=== PATIENT | female | born 2005 | race Caucasian/White ===

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

== ENCOUNTER 2023-01-12 10:57 | Outpatient (CLI) | payer OTHER, SELFPAY ==
--- NOTE | ~2023-01-12 | US_ITS ---
EXAMINATION: US soft tissue head and neck DATE: 01/12/2023 11:26 INDICATION: Lump left back of neck at base . TECHNIQUE: Grayscale and Doppler ultrasound images of the were obtained. COMPARISON: None. FINDINGS: The area of clinical concern at the left posterior neck along the hairline was sonographica lly interrogated revealing no abnormality. IMPRESSION: No sonographic abnormality in the area of clinical concern. Reviewed, dictated and finalized at location K.
== END 2023-01-12 10:58 | disposition home or self-care (01) ==
PROVIDERS: PCP Family Medicine; Visit Provider Nurse Practitioner Adult Health
DX: R22.1 Localized swelling, mass and lump, neck (principal)
CPT/HCPCS: 76536

== ENCOUNTER 2023-02-02 17:46 | Emergency (ER) | payer OTHER, SELFPAY ==
[2023-02-02 17:55] VITALS: BP 137/82; PULSE 83; RESP 16; TEMP 36.6; O2SAT 100
--- NOTE | 2023-02-02 18:06 | ED.EAR ---
HPI - Ear Problem General Chief complaint: Ear Stated complaint: Ear Infection Time Seen by Provider: 02/02/23 18:00 Source: patient Mode of arrival: ambulatory Limitations: no limitations History of Present Illness HPI Narrative: Patient is a 17 y/o female that presents with 3 days of right jaw to ear pain when swallowing. Patient states it even hurts at times when she is talking. Patient states she has several cavities that need filled but is unsure if any are in the back of her mouth. States she had a cold about a week ago and those symptoms resolved just prior to this starting. Patient states she has had ear infections in the past and this does not feel like her normal ear infection. states she does notice mild swelling to her jaw. Denies any difficulty swallowing or breathing. Denies any fevers. MD Complaint: ear pain Related Data Home Medications Medication Instructions Recorded Confirmed medroxyprogesterone 150 mg/mL 150 mg IM Q3M 02/02/23 02/02/23 intramuscular syringe Allergies Allergy/AdvReac Type Severity Reaction Status Date / Time No Known Allergies Allergy Verified 02/02/23 17:53 Review of Systems Review of Systems: All systems reviewed & are unremarkable except as noted in HPI and below Constitutional: Constitutional: Denies body ache(s), Denies chills, Denies fever(s), Denies headache(s) and Denies malaise Eyes: Eyes: Denies blurry vision, Denies eye discharge and Denies irritation ENT: Reports otalgia, Reports facial pain, Denies headache(s), Denies nasal congestion, Denies nasal discharge and Denies sore throat Cardiovascular: Cardiovascular: Denies chest pain, Denies edema, Denies palpitations and Denies dyspnea on exertion Respiratory: Respiratory: Denies cough and Denies dyspnea on exertion Gastrointestinal: Gastrointestinal: Denies abdominal pain, Denies diarrhea, Denies nausea and Denies vomiting Musculoskeletal: Musculoskeletal: Denies back pain, Denies arthralgias and Denies muscle weakness Integumentary/Breasts: Skin/Breast: Denies pruritus and Denies rash Neurologic: Denies headache(s) Psychiatric: Psychiatric: Reports no additional psychiatric complaints Endocrine: Endocrine: Denies palpitations PMFSH Past Medical History Medical History IUP (intrauterine ), incidental Morbid obesity Family History Family History Father Heart disease Mother Depression Sibling Depression Grandparent Hypertension Diabetes mellitus Social History Social History Smoking status: Never smoker Second hand tobacco smoke exposure: No Alcohol intake: never Substance use: never Lack of Transportation: No Lack of Food: Sometimes True Current Housing: I Have Housing Concerned About Future Housing: No Difficulty Paying Gas/Electric Bills: No Difficulty Paying for Meds: No Currently Unemployed: No Education: Grade School Difficulty w/ Childcare or Family Care: Decline to Answer Living arrangements: with friend(s) Additional occupation/education comments: Stay At Home Mom Gender identity (if verbalized by the patient): Female Spiritual care concerns: No Agree to blood products: Yes Comments At time of signature, agree with nursing past medical, surgical, social and family history. There is no relevant family history pertinent to the presenting complaint? Exam Const: General: cooperative, healthy appearing, no acute distress and well nourished Nutritional Appearance: well nourished Orientation/consciousness: patient oriented x3 Limitations: no limitations HENMT: Head: normal to inspection, normocephalic and atraumatic Ears: hearing grossly normal bilaterally, TM's normal bilaterally, EAC's normal, no periauricular adenopathy and TM abnormal Face/Nose/Sinus: Normal e
== END 2023-02-02 18:21 | disposition home or self-care (01) ==
PROVIDERS: Emergency Provider Nurse Practitioner Family; PCP Family Medicine
DX: K11.21 Acute sialoadenitis (principal); E66.01 Morbid (severe) obesity due to excess calories
CPT/HCPCS: 99213; G0463

== ENCOUNTER 2023-03-20 13:28 | Outpatient (CLI) | payer OTHER, SELFPAY ==
[2023-03-22 13:06] LABS: Mumps Virus IgG Antibody >300.00 AU/mL
== END 2023-03-20 13:29 | disposition home or self-care (01) ==
LOC: ANHBWCLAB 13:29
PROVIDERS: PCP Family Medicine; Visit Provider Nurse Practitioner Adult Health
DX: Z01.84 Encounter for antibody response examination (principal)
CPT/HCPCS: 36415; 86735; 86765

== ENCOUNTER 2023-05-21 18:50 | Emergency (ER) | payer OTHER, SELFPAY ==
[2023-05-21 19:21] VITALS: BP 147/80; PULSE 103; RESP 16; TEMP 36.5; O2SAT 100
--- NOTE | 2023-05-21 20:13 | ED.URI ---
HPI - URI/Sore Throat General Chief Complaint: Upper Respiratory Infection Stated Complaint: Sore Throat;Ear pain Time Seen by Provider: 05/21/23 20:14 Source: patient Mode of arrival: ambulatory Limitations: no limitations History of Present Illness HPI Narrative: 17 year female who presents to [facility] with complaints of sore throat and also some ear discomfort and sinus congestion and drainage for 2 day duration. Patient reports pain increases on swallowing. Patient reports that she has not had any known fevers chills or sweats or any body aches.Patient reports that she has used some cough drops to soothe her throat. MD elicited complaint: sore throat, rhinorrhea, nasal congestion and other (ear) Onset (ago): day(s) (2) Pain scale (0-10): 2 Description of mucous: clear Able to tolerate fluids by mouth: Yes Exacerbating factors: swallowing Treatments prior to arrival: other (cough drops) Related Data Home Medications Medication Instructions Recorded Confirmed medroxyprogesterone 150 mg/mL 150 mg IM Q3M 02/02/23 03/20/23 intramuscular syringe Allergies Allergy/AdvReac Type Severity Reaction Status Date / Time No Known Allergies Allergy Verified 03/20/23 13:00 Review of Systems Review of Systems: CONSTITUTIONAL: Denies malaise, chills, sweats, or fever. EYES: Denies visual changes, redness, or discharge. ENT: Reports rhinorrhea, congestion,no sinus pain,positive for otalgia and sore throat. CARDIOVASCULAR: Denies chest pain, palpitations, or edema. RESPIRATORY: Reports no cough.? Denies dyspnea. GASTROINTESTINAL: Denies abdominal pain, nausea, vomiting, diarrhea SKIN: Denies rash or itching. MUSCULOSKELETAL: Denies myalgia. NEUROLOGIC: Denies headache. All systems reviewed & are unremarkable except as noted in HPI and below PMFSH Past Medical History Medical History IUP (intrauterine ), incidental Morbid obesity Family History Family History Father Heart disease Mother Depression Sibling Depression Grandparent Hypertension Diabetes mellitus Social History Social History Smoking status: Never smoker Second hand tobacco smoke exposure: No Alcohol intake: never Substance use: never Lack of Transportation: No Lack of Food: Sometimes True Current Housing: I Have Housing Concerned About Future Housing: No Difficulty Paying Gas/Electric Bills: No Difficulty Paying for Meds: No Currently Unemployed: No Education: Grade School Difficulty w/ Childcare or Family Care: Decline to Answer Living arrangements: with friend(s) Additional occupation/education comments: Stay At Home Mom Gender identity (if verbalized by the patient): Female Spiritual care concerns: No Agree to blood products: Yes Comments At time of signature, agree with nursing past medical, surgical, social and family history. There is no relevant family history pertinent to the presenting complaint Exam Narrative: GENERAL: Well-appearing, well-nourished, and in no acute distress. HEAD: Normocephalic EYES: PERRLA, conjunctivae clear ENT: Nares clear, turbinates edematous and erythematous, clear discharge. Mucous membranes moist. TM pearly milan with dull light reflex bilaterally; no tragal tenderness. Oropharynx erythematous without lesions. Tonsils not enlarged and without exudate, no drooling, no hoarseness, no trismus, uvula midline.post nasal drainage NECK: Supple. No lymphadenopathy CHEST: Clear to auscultation, breath sounds equal. No wheezing, rhonchi, rales, or stridor. No respiratory distress, speaks in full sentences.no cough noted SAO2 100% on room air HEART: Regular rate and rhythm. No murmur heard. SKIN: Warm, dry, no rash. NEURO: Alert and oriented x3. PSYCH: Norm
== END 2023-05-21 20:30 | disposition home or self-care (01) ==
LOC: EXPGOSH 18:53
PROVIDERS: Emergency Provider Registered Nurse; PCP Family Medicine
DX: J06.9 Acute upper respiratory infection, unspecified (principal)
CPT/HCPCS: 87081; 87804; 87880; 99213; G0463

== ENCOUNTER 2023-06-07 11:03 | Emergency (ER) | payer OTHER, SELFPAY ==
[2023-06-07 11:17] VITALS: BP 129/95; PULSE 100; RESP 16; TEMP 37.1; O2SAT 99
--- NOTE | 2023-06-07 11:22 | ED.URI ---
HPI - URI/Sore Throat General Chief Complaint: Upper Respiratory Infection Stated Complaint: Ear and Throat pain History of Present Illness HPI Narrative: 17 y/o female presented for c/o bilateral ear pressure and sore throat for about 3 weeks. Was seen at the onset in our clinic, and has been taking rosas and steroid as directed with minimal improvement. Pain is intermittent, worse when laying down. Denies difficulty maintaining secretions, tinnitus, dizziness, ear drainage, n/v/d/f/c. Related Data Home Medications Medication Instructions Recorded Confirmed medroxyprogesterone 150 mg/mL 150 mg IM Q3M 02/02/23 06/07/23 intramuscular syringe Allergies Allergy/AdvReac Type Severity Reaction Status Date / Time No Known Allergies Allergy Verified 06/07/23 11:16 Review of Systems Review of Systems: CONSTITUTIONAL: Denies body aches, fever, chills, or sweats. EYES: Denies visual changes, redness, or discharge. ENT: reports rhinorrhea, congestion, sore throat, otalgia. CARDIOVASCULAR: Denies chest pain, palpitations, or edema. RESPIRATORY: Denies dyspnea. GASTROINTESTINAL: Denies abdominal pain, nausea, vomiting, or diarrhea. SKIN: Denies rash, itching, or wounds. MUSCULOSKELETAL: Denies back pain, joint pain, or myalgia. NEUROLOGIC: Denies headache PMFSH Past Medical History Medical History IUP (intrauterine ), incidental Morbid obesity Family History Family History Father Heart disease Mother Depression Sibling Depression Grandparent Hypertension Diabetes mellitus Social History Social History Smoking status: Never smoker Second hand tobacco smoke exposure: No Alcohol intake: never Substance use: never Lack of Transportation: No Lack of Food: Sometimes True Current Housing: I Have Housing Concerned About Future Housing: No Difficulty Paying Gas/Electric Bills: No Difficulty Paying for Meds: No Currently Unemployed: No Education: Grade School Difficulty w/ Childcare or Family Care: Decline to Answer Living arrangements: with friend(s) Additional occupation/education comments: Stay At Home Mom Gender identity (if verbalized by the patient): Female Spiritual care concerns: No Agree to blood products: Yes Exam Narrative: GENERAL: mildly Ill-appearing, no acute distress. EYES: conjunctivae clear ENT: Mucous membranes moist. TMs pearly milan with normal light reflex and clear effusion bilaterally; no tragal tenderness. Oropharynx mildly erythematous without lesions. No drooling, no hoarseness, no trismus, uvula midline. No tripod positioning, hot potato voice, or soft palate swelling. NECK: Supple. No lymphadenopathy CHEST: Clear to auscultation, breath sounds equal. No respiratory distress, speaks in full sentences. HEART: Regular rate and rhythm. No murmur heard. SKIN: Warm, dry, no rash. NEURO: Alert and oriented x3. Course Course Emergency Course: Patient is aware of diagnosis, understands and agrees to treatment plan. Anticipatory guidance given. Patient agrees to follow-up as directed and is aware of reasons to seek care at the emergency department. Portions of this record may have been created with voice recognition software Level of Care: Express Care Visit Vital Signs Vital signs: Vital Signs Temperature 98.8 F 06/07/23 11:17 Pulse Rate 100 06/07/23 11:17 Respiratory Rate 16 06/07/23 11:17 Blood Pressure 129/95 H 06/07/23 11:17 Pulse Oximetry 99 06/07/23 11:17 Temperature 98.8 F 06/07/23 11:17 Pulse Rate 100 06/07/23 11:17 Respiratory Rate 16 06/07/23 11:17 Blood Pressure 129/95 H 06/07/23 11:17 Pulse Oximetry 99 06/07/23 11:17 MDM - URI/Sore Throat MDM Narrative Medical decision making narrat
== END 2023-06-07 11:35 | disposition home or self-care (01) ==
PROVIDERS: Emergency Provider Nurse Practitioner Family; PCP Family Medicine
DX: H65.03 Acute serous otitis media, bilateral (principal); J06.9 Acute upper respiratory infection, unspecified; Z79.899 Other long term (current) drug therapy
CPT/HCPCS: 99213; G0463

== ENCOUNTER 2023-07-13 10:25 | Emergency (ER) | payer OTHER, SELFPAY ==
--- NOTE | 2023-07-13 10:31 | ED.GENADULT ---
HPI - General Adult General Chief complaint: Ear Stated complaint: L EAR PAIN/CLOGGED Time Seen by Provider: 07/13/23 10:35 Source: patient, RN notes reviewed and old records reviewed Mode of arrival: ambulatory Limitations: no limitations History of Present Illness HPI narrative: 17-year-old female presents to the [facility] with left ear pain since yesterday. States it feels clogged. Has taken ibuprofen which helped with the pain. Denies fevers. Patient denies any other symptoms other than ear pain Onset (ago): day(s) (1) Treatments prior to arrival: NSAID Related Data Allergies Allergy/AdvReac Type Severity Reaction Status Date / Time No Known Allergies Allergy Verified 07/13/23 10:29 Review of Systems Review of Systems: All systems reviewed & are unremarkable except as noted in HPI and below Constitutional: Constitutional: Reports no additional constitutional complaints Eyes: Eyes: Reports no additional eye complaints ENT: Reports as per HPI, Denies ear discharge and Reports otalgia (Left) Cardiovascular: Cardiovascular: Reports no additional cardiovascular complaints, Denies chest pain and Denies dyspnea Respiratory: Respiratory: Reports no additional respiratory complaints, Denies chest congestion, Denies cough and Denies dyspnea Gastrointestinal: Gastrointestinal: Reports no additional gastrointestinal complaints, Denies abdominal pain, Denies nausea and Denies vomiting Musculoskeletal: Musculoskeletal: Reports no additional musculoskeletal complaints Integumentary/Breasts: Skin/Breast: Reports system reviewed and no additional complaints, except as docu Neurologic: Reports system reviewed and no additional complaints, except as documented Psychiatric: Psychiatric: Reports no additional psychiatric complaints Allergic/Immunologic: Allergic/Immunologic: Reports no additional allergic/immunologic complaints PMFSH Past Medical History Medical History IUP (intrauterine ), incidental Morbid obesity Family History Family History Father Heart disease Mother Depression Sibling Depression Grandparent Hypertension Diabetes mellitus Social History Social History Smoking status: Never smoker Second hand tobacco smoke exposure: No Alcohol intake: never Substance use: never Lack of Transportation: No Lack of Food: Sometimes True Current Housing: I Have Housing Concerned About Future Housing: No Difficulty Paying Gas/Electric Bills: No Difficulty Paying for Meds: No Currently Unemployed: No Education: Grade School Difficulty w/ Childcare or Family Care: Decline to Answer Living arrangements: with friend(s) Additional occupation/education comments: Stay At Home Mom Gender identity (if verbalized by the patient): Female Spiritual care concerns: No Agree to blood products: Yes Comments At the time of my signature, I reviewed and agree with the nursing past medical, surgical, social, and family history. There is no relevant family history pertinent to the patient complaint. Exam Const: General: cooperative, healthy appearing, comfortable, no acute distress, well developed, alert and well nourished Nutritional Appearance: well nourished Orientation/consciousness: patient oriented x3 Limitations: no limitations HENMT: Head: normal to inspection Ears: hearing grossly normal bilaterally, external ears normal, TM normal on the right, EAC's normal, mastoids normal, no periauricular adenopathy and TM abnormal erythematous on the left Face/Nose/Sinus: Normal external nose present, Normal nares present, Normal nasal mucous membranes and turbinates present, normal facial exam and face symmetric Face and sinus: normal facial exam and face symmetric Mouth: Yes Normal oral and palatal mucosa presen
[2023-07-13 10:33] VITALS: BP 139/74; PULSE 106; RESP 20; TEMP 36.2; O2SAT 100
== END 2023-07-13 10:48 | disposition home or self-care (01) ==
PROVIDERS: Emergency Provider Nurse Practitioner; PCP Family Medicine
DX: H66.92 Otitis media, unspecified, left ear (principal); E66.01 Morbid (severe) obesity due to excess calories
CPT/HCPCS: 99213; G0463

== ENCOUNTER 2024-01-03 10:42 | Emergency (ER) | payer OTHER, SELFPAY ==
--- NOTE | 2024-01-03 10:45 | ED.LOWEXIN ---
HPI - Extremity Injury (Lower) General Chief Complaint: Extremity Injury, Lower Stated Complaint: Left Foot Pain Time Seen by Provider: 01/03/24 10:45 Source: patient Mode of arrival: ambulatory Limitations: no limitations History of Present Illness HPI Narrative: Krystal is a 18-year-old female patient presenting to the clinic today with complaints of left foot pain. She reports she injured her the foot yesterday when stepping off a curb. States she is having pain over the lateral foot-4th and 5th metatarsals Related Data Home Medications Medication Instructions Recorded Confirmed No Home Medications 01/03/24 01/03/24 Allergies Allergy/AdvReac Type Severity Reaction Status Date / Time No Known Allergies Allergy Verified 01/03/24 10:49 Review of Systems Review of Systems: Pertinent positives per HPI. Patient denies any fever, chills, rash, headache, visual changes, dizziness, cough, runny nose, sore throat, shortness of breath, chest pain, palpitations, nausea, vomiting, diarrhea, constipation, abdominal pain, or any urinary issues. PMFSH Past Medical History Medical History IUP (intrauterine ), incidental Morbid obesity Family History Family History Father Heart disease Mother Depression Sibling Depression Grandparent Hypertension Diabetes mellitus Social History Social History Smoking status: Never smoker Second hand tobacco smoke exposure: No Alcohol intake: never Substance use: never Lack of Transportation: No Lack of Food: Sometimes True Current Housing: I Have Housing Concerned About Future Housing: No Difficulty Paying Gas/Electric Bills: No Difficulty Paying for Meds: No Currently Unemployed: No Education: Grade School Difficulty w/ Childcare or Family Care: Decline to Answer Living arrangements: with friend(s) Additional occupation/education comments: Stay At Home Mom Gender identity (if verbalized by the patient): Female Spiritual care concerns: No Agree to blood products: Yes Comments At the time of my signature, I reviewed and agree with the nursing past medical, surgical, social, and family history. There is no relevant family history pertinent to the patient complaint. Exam Narrative: General: Well-developed, well nourished, in no apparent distress Head: Normocephalic, atraumatic. Cardio: Regular rate and rhythm, s1 and s2 normal, no murmur appreciated. Resp: Clear to auscultation bilaterally, no rhonchi, rales, wheezing or rubs. Musculoskeletal: No deformity, tender to palpation over the proximal and mid 4th and 5th metatarsals, grossly normal range of motion, muscle strength strong and equal, peripheral pulse strong, no edema, no cyanosis, normal gait and station Course Course Emergency Course: Portions of this record may have been created with voice recognition software. Level of Care: Express Care Visit Vital Signs Vital signs: Vital Signs Temperature 36.6 C 01/03/24 10:52 Pulse Rate 89 01/03/24 10:52 Respiratory Rate 16 01/03/24 10:52 Blood Pressure 113/60 01/03/24 10:52 Pulse Oximetry 100 01/03/24 10:52 Temperature 36.6 C 01/03/24 10:52 Pulse Rate 89 01/03/24 10:52 Respiratory Rate 16 01/03/24 10:52 Blood Pressure 113/60 01/03/24 10:52 Pulse Oximetry 100 01/03/24 10:52 Vital signs reviewed MDM - Extremity Injury (Lower) MDM Narrative Medical decision making narrative: At the time of visit patient is resting comfortably on the exam table. Patient appears to be nontoxic. Diagnostics: X-ray of the left foot was negative for any sign of fracture or malalignment. Plan: I suspect patient has a foot sprain. Ras wrap was applied. Work note was given. Supportive measures w
[2024-01-03 10:52] VITALS: BP 113/60; PULSE 89; RESP 16; TEMP 36.6; O2SAT 100
== END 2024-01-03 11:28 | disposition home or self-care (01) ==
PROVIDERS: Emergency Provider Nurse Practitioner Family; PCP Family Medicine
DX: S93.602A Unspecified sprain of left foot, initial encounter (principal); X58.XXXA Exposure to other specified factors, initial encounter; E66.01 Morbid (severe) obesity due to excess calories; Z68.39 Body mass index [BMI] 39.0-39.9, adult
CPT/HCPCS: 73630; 99213; G0463

== ENCOUNTER 2024-02-01 13:13 | Outpatient (CLI) | payer OTHER, SELFPAY ==
--- NOTE | ~2024-02-01 | US_ITS ---
US breast RT limited INDICATION: Palpable right breast abnormality. TECHNIQUE: Dedicated right limited breast ultrasound COMPARISON: No prior studies for comparison. FINDINGS: Not dense: There are scattered areas of fibroglandular density. The right breast is compos ed of normal heterogeneous echotexture without focal solid or cystic mass. IMPRESSION: 1: Normal limited right breast ultrasound. BI-RADS CATEGORY 1 - NEGATIVE Reviewed, dictated and finalized at location B.
== END 2024-02-01 13:14 | disposition home or self-care (01) ==
LOC: ANHIMG 13:14
PROVIDERS: PCP Nurse Practitioner Adult Health; Visit Provider Nurse Practitioner Adult Health
DX: N63.10 Unspecified lump in the right breast, unspecified quadrant (principal)
CPT/HCPCS: 76642

== ENCOUNTER 2024-02-09 18:54 | Emergency (ER) | payer OTHER, SELFPAY ==
[2024-02-09 19:03] VITALS: BP 142/77; PULSE 98; RESP 16; TEMP 37.2; O2SAT 100
--- NOTE | 2024-02-09 19:12 | ED.SKABFB ---
HPI - Skin/Abscess/Foreign Bdy General Chief complaint: Skin/Abscess/Foreign Body Stated complaint: boil on armpit,fever, rash on thighs Time Seen by Provider: 02/09/24 19:12 Source: patient, RN notes reviewed and old records reviewed Mode of arrival: ambulatory Limitations: no limitations History of Present Illness HPI narrative: 18 year old female who presents to [facility] care accompanied by significant other with complaints of small approximately 1cm diameter red minimal raised abscess to her right axilla with induration no fluctuation or drainage noted since yesterday. Patient reports that she has put prid salve on area X2 and covered with band-aide. Patient reports that area is sore especially when she moves her arm downward.Patient also has fine minimally raised rash to medial and posterior thighs which resembles heat rash for the past 3 days, has been taking Benadryl for the rash.Patient reports that they took their son [place] the zoo today and she was miserable there. States low grade temperature noted. MD complaint: rash and abscess/boil Onset (ago): day(s) (day 2 of symptoms to axilla, day 3 of rash) Location: RUE (axilla), LLE and RLE (upper medial and posterior thigh) Quality: sharp (axilla) and pruritic (thighs) Treatments prior to arrival: bandages (band-aide to area and prid salve) and other (Benadryl for rash) Related Data Allergies Allergy/AdvReac Type Severity Reaction Status Date / Time No Known Allergies Allergy Verified 02/09/24 19:02 Review of Systems Review of Systems: CONSTITUTIONAL: Reports low grade fever, no chills, or sweats. CARDIOVASCULAR: Denies chest pain, palpitations, or edema. RESPIRATORY: Denies cough or dyspnea. GASTROINTESTINAL: Denies abdominal pain, nausea, or any vomiting or diarrhea SKIN: Reports redness and swelling with approximately 1cm minimally raised abscess to right axilla no fluctuant tissue is painful to palpation,no purulent drainage, fine red itchy rash to medial and posterior upper legs MUSCULOSKELETAL: Denies myalgia NEUROLOGIC: Denies headache, All systems reviewed & are unremarkable except as noted in HPI and below PMFSH Past Medical History Medical History Anxiety and depression IUP (intrauterine ), incidental Migraine Morbid obesity Family History Family History Father Heart disease Mother Depression Sibling Depression Grandparent Hypertension Diabetes mellitus Social History Social History Smoking status: Never smoker Second hand tobacco smoke exposure: No Alcohol intake: never Substance use: never Lack of Transportation: No Lack of Food: Sometimes True Current Housing: I Have Housing Concerned About Future Housing: No Difficulty Paying Gas/Electric Bills: No Difficulty Paying for Meds: No Currently Unemployed: No Education: Grade School Difficulty w/ Childcare or Family Care: Decline to Answer Living arrangements: with friend(s) Additional occupation/education comments: Stay At Home Mom Gender identity (if verbalized by the patient): Female Spiritual care concerns: No Agree to blood products: Yes Comments At time of signature, agree with nursing past medical, surgical, social and family history. There is no relevant family history pertinent to the presenting complaint Exam Narrative: GENERAL: Well-appearing, well-nourished,obese, and in no acute distress. HEAD: Normocephalic, atraumatic. EYES: PERRLA and EOMI. ENT: Nares clear, no rhinorrhea or epistaxis. Mucous membranes moist. NECK: Supple.no lymphadenopathy CHEST: Clear to auscultation. No respiratory distress.SAO2 100% on room air HEART: Regular rate and rhythm. No murmur heard. Normal peripheral pulses. ABDOMEN: Soft, nontender, nondistended, normal active bowel sounds. E
== END 2024-02-09 19:31 | disposition home or self-care (01) ==
PROVIDERS: Emergency Provider Registered Nurse; PCP Nurse Practitioner Adult Health
DX: L02.411 Cutaneous abscess of right axilla (principal); L74.0 Miliaria rubra; E66.01 Morbid (severe) obesity due to excess calories; Z68.41 Body mass index [BMI] 40.0-44.9, adult
CPT/HCPCS: 99213; G0463

== ENCOUNTER 2024-02-27 13:55 | Outpatient (CLI) | payer OTHER, SELFPAY ==
[2024-02-27 19:32] LABS: Add Urine Microscopic? YES; Appearance Urine Turbid (Clear); Bacteria Urine 4+ /hpf; Bilirubin Urine Negative (Negative); Blood Urine 3+ (Negative); Color Urine Dark Yellow (Yellow); Glucose Urine UA Negative (Negative); Ketones Urine Negative (Negative); Leukocyte Esterase Ur 2+ LEU/UL (Negative); Need Manual Microscopic Reviewed; Nitrate Urine Positive (Negative); Protein Urine 2+ mg/dL (Negative); RBC Urine >100 /hpf (0-2); Specific Grav Ur 1.025 (1.001-1.035); Squamous Epithelial Cell Urine Many /hpf (Few); WBC Urine 51-100 /hpf (0-3)
== END 2024-02-27 13:56 | disposition home or self-care (01) ==
LOC: ANHBWCLAB 13:56
PROVIDERS: PCP Nurse Practitioner Adult Health; Visit Provider Nurse Practitioner Adult Health
DX: R39.9 Unspecified symptoms and signs involving the genitourinary system (principal)
CPT/HCPCS: 81001; 87077; 87086; 87088; 87186

== ENCOUNTER 2024-07-03 15:10 | Outpatient (CLI) | payer OTHER, SELFPAY ==
[2024-07-03 20:30] LABS: Anion Gap 9 mmol/L (4-12); Blood Urea Nitrogen 13 mg/dL (7-17); Calcium 9.3 mg/dL (8.4-10.2); Carbon Dioxide 26 mmol/L (22-30); Chloride 102 mmol/L (98-107); Estimated Glomerular Filt Rate > 60; Glucose 96 mg/dL (65-110); Potassium 4.2 mmol/L (3.4-5.0); Sodium 137 mmol/L (137-145)
[2024-07-03 20:49] LABS: Basophils Percent Auto 0.5 % (0.2-1.2); Eosinophils Absolute Auto 0.1 K/mm3 (0-0.3); Eosinophils Percent Auto 0.8 % (0-4.4); Hematocrit 38.4 % (37.0-47.0); Hemoglobin 12.8 g/dL (12.0-15.0); Immature Granulocyte Absolute 0.04 K/mm3 (0.00-0.031); Immature Granulocyte Percent A 0.6 % (0-0.5); Lymphocytes Absolute Auto 1.99 K/mm3 (0.9-3.2); Lymphocytes Percent Auto 30.5 % (18.3-44.2); Mean Corpuscular HGB Conc 33.3 g/dl (32-36); Mean Corpuscular Hemoglobin 29.2 pg (26-34); Mean Corpuscular Volume 87.5 fl (80-100); Mean Platelet Volume 11.1 fl (7.4-10.4); Monocytes Absolute Auto 0.5 K/mm3 (0.1-0.6); Monocytes Percent Auto 7.4 % (2.6-8.5); Neutrophils Absolute Auto 3.9 K/mm3 (1.3-6.7); Neutrophils Percent Auto 60.2 % (45.5-73.1); Platelet Count Result 266 k/mm3 (150-375); Red Blood Count 4.39 M/mm3 (4.2-5.4); Red Cell Distribution Width 13.3 % (11.5-14.5); White Blood Count 6.5 K/mm3 (4.5-10.0)
== END 2024-07-03 15:11 | disposition home or self-care (01) ==
LOC: ANHBWCLAB 15:11
PROVIDERS: PCP Nurse Practitioner Adult Health; Visit Provider Nurse Practitioner Adult Health
DX: R59.1 Generalized enlarged lymph nodes (principal)
CPT/HCPCS: 36415; 80048; 85025

== ENCOUNTER 2024-12-29 16:51 | Emergency (ER) | payer OTHER, SELFPAY ==
[2024-12-29 16:56] VITALS: BP 130/79; PULSE 90; RESP 16; TEMP 36.7; O2SAT 100
--- NOTE | 2024-12-29 18:00 | ED_ITS ---
HPI - Skin/Abscess/Foreign Bdy General Chief complaint: Skin/Abscess/Foreign Body Stated complaint: Rash Time Seen by Provider: 12/29/24 17:50 Source: patient and RN notes reviewed Mode of arrival: ambulatory Limitations: no limitations History of Present Illness HPI narrative: Patient presents today states she believes she has poison alem to her abdomen, chest, legs x4 days. States her boyfriend contracted poison alem approximately 2 weeks ago and got started on some prednisone last week. Personally she did not have contact with the poison alem or with any or oils on her boyfriend, but states she had exposure to ruptured vesicles on her boyfriend's arms. Patient also recently switched from fragrance free laundry detergent back to regular laundry detergent less than 2 weeks ago. She has been trying Benadryl and calamine lotion without relief. She has significant itching at her anterior bra line. Related Data Home Medications ?Medication ?Instructions ?Recorded ?Confirmed ?Last Taken ?Type medroxyprogesterone 150 mg/mL 150 mg IM [id number] 07/03/24 12/17/24 Unknown History intramuscular suspension (Depo-Provera) Allergies Allergy/AdvReac Type Severity Reaction Status Date / Time amoxicillin (From Augmentin) Allergy Mild Rash Verified 12/29/24 17:36 clavulanic acid (From Allergy Mild Rash Verified 12/29/24 17:36 Augmentin) [facility] Past Medical History Medical History Anxiety and depression Migraine Morbid obesity IUP (intrauterine ), incidental Family History Family History Father Heart disease Mother Depression Sibling Depression Grandparent Hypertension Diabetes mellitus Social History Social History Smoking status: Never smoker Second hand tobacco smoke exposure: No Alcohol intake: never Substance use: never Lack of Transportation: No Lack of Food: Sometimes True Current Housing: I Have Housing Concerned About Future Housing: No Difficulty Paying Gas/Electric Bills: No Difficulty Paying for Meds: No Currently Unemployed: No Education: Grade School Difficulty w/ Childcare or Family Care: Decline to Answer Living arrangements: with friend(s) Additional occupation/education comments: Stay At Home Mom Gender identity (if verbalized by the patient): Female Spiritual care concerns: No Agree to blood products: Yes Comments At time of signature, I have reviewed and agree with nursing past medical, surgical, social and family history unless otherwise noted. Please see nursing chart for further information. There is no relevant family history pertinent to the presenting complaint Exam Narrative: GENERAL: Well-appearing, well-nourished, and in no acute distress. HEAD: Normocephalic, atraumatic. EYES: EOMI. No redness or drainage. Conjunctivae normal. ENT: Mucous membranes pink and moist. NECK: Normal AROM. CHEST: No respiratory distress. EXTREMITIES: Normal range of motion. No edema. SKIN: Warm, dry. Capillary refill normal. Normal skin turgor. Erythematous papular rash spread sparsely over the bilateral posterior legs, and a patch to the mid chest, speckled over the bilateral buttocks and lower abdomen. Has a large area of a hyperpigmentation to the anterior bra line without papules that seems to be healing, but this is the area of most pruritus. No signs of bacterial infection. NEURO: No focal deficits. Alert and oriented x3. Gait steady. PSYCH: Normal affect. No signs of depression or anxiety. Course Course Level of Care: Express Care Visit Vital Signs Vital signs: Vital Signs Temperature 98.1 F 12/29/24 16:56 Pulse Rate 90 12/29/24 16:56 Respiratory Rate 16 12/29/24 16:56 Blood Pressure 130/79 12/29/24 16:56 Pulse Oximetry 100 12/29/24 16:56 Oxygen Delivery Room Air 12/29/24 16:56 Temperature 98.1 F 12/29/24 16:56 Pulse Rate 90 12/29/24 16:56 Respiratory Rate 16 12/29/24 16:56 Blood Pressure 130/79 12/29/24 16:56 Pulse Oximetry 100 12/29/24 16:56 Oxygen Delivery Room Air 12/29/24 16:56 Reviewed MDM - Skin/Abscess/Foreign Bdy MDM Narrative Medical decision making narrative: 19-year-old female patient presents with pruritic rash to the abdomen, chest, legs, buttocks that she believes to be poison alem. HPI and exam is more consistent with contact dermatitis, likely from her recent change in laundry soap. She will be prescribed some oral prednisone due to widespread nature, especially to the lower chest, and some triamcinolone it is to be used in smaller areas of itching. Vital signs stable. Care instructions given and patient agrees with plan. Differential Diagnosis Differential diagnosis: Likely abscess of skin or subcutaneous tissue, viral exanthem, dermatophytosis, urticaria, cellulitis, eczema, insect bites, impetigo and contact dermatitis Critical Care Time Critical Care Time Critical Care Time: No Discharge Plan Discharge Clinical Impression: Contact dermatitis Qualifiers: Contact dermatitis type: unspecified Contact dermatitis trigger: detergents Qualified Code(s): L24.0 - Irritant contact dermatitis due to detergents Patient Disposition: Home Condition: Stable Instructions: Contact Dermatitis (ED) Additional Instructions: Please take the prednisone as directed. Use the triamcinolone in small areas of itching, not to your face or genitalia. You may also start a daily antihistamine such as Zyrtec, Claritin, or Chayo if you find Benadryl to be too sedating. Follow-up with your PCP with any additional concerns. Your blood pressure was elevated above 120/80 today at Urgent Care. This puts you above the threshold for follow up. Please schedule a followup visit with your personal physician as soon as possible, for further evaluation and treatment. Even blood pressure exceeding 120/80 may indicate pre-hypertension. Patient Language: Omani Prescriptions: New triamcinolone acetonide 0.1 % cream 1 applic topical BID Qty: 30 0RF prednisone 50 mg tablet 50 mg PO DAILY 5 Days Qty: 5 0RF No Action medroxyprogesterone [Depo-Provera] 150 mg/mL suspension 150 mg IM [id number] triamcinolone acetonide 0.1 % cream 1 applic topical BID Qty: 30 1RF sumatriptan succinate 50 mg tablet See Rx Instructions PO .COMPLEX Qty: 14 0RF Rx Instructions: take 1 tab at onset of headache; if no relief may repeat 1 tab after at least 2 hrs; max = 4 tabs/24 hr PO Follow-up/Referrals: Eleuterio Blanton MD [Primary Care Provider] - Stand Alone Forms: Work/School Release IP Time of Disposition: 18:05
== END 2024-12-29 18:07 | disposition home or self-care (01) ==
PROVIDERS: Emergency Provider Nurse Practitioner; PCP Family Medicine
DX: L24.0 Irritant contact dermatitis due to detergents (principal); E66.01 Morbid (severe) obesity due to excess calories; Z68.39 Body mass index [BMI] 39.0-39.9, adult
CPT/HCPCS: 99213; G0463

== ENCOUNTER 2025-01-30 15:54 | Emergency (ER) | payer OTHER, SELFPAY ==
--- OUTSIDE RECORDS SUMMARY | 2025-01-30 15:58 | XMS_ITS | Clinical Summary ---
Author Organization [facility] Address [address] [place] [address] Care Team Providers Care Casino Host Name Role Phone Negar Wang MD Primary Care Provider [phone] Source Comments [facility] [employer],non-owned Affiliates and Associated Physician Practices is amultiple site organization consisting of ambulatory clinics and hospital sitesin [place], [place], [place] and [place]. This disclosure is being madepursuant to the Care Everywhere program and may not contain all information available regarding this patient. Last updated 18.[facility] [employer] Allergies No known active allergies Medications * Be aware that medications may not be up to date on this document. Alwaysverify current medications with the patient. lamoTRIgine (LAMICTAL) 25 MG tablet Take 50 mg by mouth 2 times daily Active Social History Tobacco Use Types Packs/Day Years Used Date Smoking Tobacco: Never Assessed Comments No Sex and Gender Information Value Date Recorded Sex Assigned at Not on file Legal Sex Female 8:08 AM CDT Gender Identity Not on file Sexual Orientation Not on file Last Filed Vital Signs Vital Sign Reading Time Taken Comments Blood Pressure - - Pulse - - Temperature - - Respiratory Rate - - Oxygen Saturation - - Inhaled Oxygen Concentration - - Weight 64.6 kg (142 lb 6.7 oz) 03/24/2016 11:26 AM CDT Height 156.7 cm (5' 1.69) 03/24/2016 11:26 AM C DT Body Mass Index 26.31 03/24/2016 11:26 AM CDT Plan of Treatment Health Maintenance Due Date Last Done Comments HIV SCREENING 2018 HPV VACCINE (1 - 3-dose series) 2018 CHLAMYDIA/GONORRHEA SCREENING 2019 MENINGOCOCCAL (Group B) VACC INE SHARED DECISION-MAKING (1 of 2 - Standard) 2019 HEPATITIS C SCREENING 08/01/2021 DTAP/TDAP/TD VACCINES (1 - Tdap) 2022 HEPATITIS B VACCINE (1 of 3 - 19+ 3-dose series) 2022 COVID-19 VACCINE (1 - 2023-2 5 season) 2024 DEPRESSION SCREENING 06/25/2024 PAP SMEAR 2024 INFLUENZA VACCINE (#1) 2025 ZOSTER VACCINE (1 of 2) 2053 HIB VACCINE Aged Out No longer eligi ble based on patient's age to complete this topic MENINGOCOCCAL GROUPS A/C/Y/W VACCINE Aged Out No longer eligible b ased on patient's age to complete this topic PNEUMOCOCCAL VACCINE Aged Out No long er eligible based on patient's age to complete this topic Insurance [facility] Care Teams Casino Host Relationship Specialty Start Date End Date Negar Wang MD PCP - General 06/10/18
[2025-01-30 16:02] VITALS: BP 166/80; PULSE 83; RESP 18; TEMP 36.6; O2SAT 100
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
== END 2025-01-30 16:26 | disposition short-term general hospital (02) ==
PROVIDERS: Emergency Provider Nurse Practitioner Family; PCP Family Medicine
DX: S06.9X1A Unspecified intracranial injury with loss of consciousness of 30 minutes or less, initial encounter (principal); W22.8XXA Striking against or struck by other objects, initial encounter; Y93.11 Activity, swimming; E66.01 Morbid (severe) obesity due to excess calories; Z68.41 Body mass index [BMI] 40.0-44.9, adult
CPT/HCPCS: 99213; G0463

== ENCOUNTER 2025-01-30 17:11 | Emergency (ER) | payer OTHER, SELFPAY ==
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
--- OUTSIDE RECORDS SUMMARY | 2025-01-30 17:14 | XMS_ITS | Clinical Summary ---
Author Organization [facility] Address [address] [place] [address] Care Team Providers Care Server Assistant Name Role Phone Negar Wang MD Primary Care Provider [phone]- [phone] Source Comments [facility] [employer],non-owned Affiliates and Associated Physician Practices is amultiple site organization consisting of ambulatory clinics and hospital sitesin [place], [place], [place] and [place]. This disclosure is being madepursuant to the Care Everywhere program and may not contain all information available regarding this patient. Last updated 18.[facility] [employer] Allergies No known active allergies Medications * [...] patient's age to complete this topic Insurance [facility] Care Teams Server Assistant Relationship Specialty Start Date End Date Negar Wang MD PCP - General 06/10/18
[2025-01-30 17:15] VITALS: BP 136/82; PULSE 90; RESP 16; TEMP 36.9; O2SAT 100
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
--- OUTSIDE RECORDS SUMMARY | 2025-01-30 19:55 | XMS_ITS | Clinical Summary ---
Author Organization [facility] Address [address] [place] [address] Care Team Providers Care Jive Developer Name Role Phone Negar Wang MD Primary Care Provider [phone] Source Comments [facility],non-owned Affiliates and Associated Physician Practices is amultiple site organization consisting of ambulatory clinics and hospital sitesin [place], [place], [place] and [place]. This disclosure is being madepursuant to the Care Everywhere program and may not contain all information available regarding this patient. Last updated 18.[facility] Allergies No known active allergies Medications * [...] patient's age to complete this topic Insurance [facility] Care Teams Jive Developer Relationship Specialty Start Date End Date Negar Wang MD PCP - General 06/10/18
[2025-01-30 20:00] VITALS: BP 135/87; PULSE 83; RESP 20; TEMP 36.6; O2SAT 100
== END 2025-01-30 20:05 | disposition home or self-care (01) ==
LOC: ANHED 19:54
PROVIDERS: Emergency Provider Emergency Medicine; PCP Family Medicine
DX: S09.90XA Unspecified injury of head, initial encounter (principal); M54.2 Cervicalgia; Y93.18 Activity, surfing, windsurfing and boogie boarding; F41.8 Other specified anxiety disorders; E66.01 Morbid (severe) obesity due to excess calories; Z68.39 Body mass index [BMI] 39.0-39.9, adult
CPT/HCPCS: 70450; 72125; 99284

== ENCOUNTER 2025-03-18 16:27 | Outpatient (CLI) | payer OTHER, SELFPAY ==
[2025-03-18 19:13] LABS: Beta HCG Quantitative < 2.39 mIU/ML
== END 2025-03-18 16:28 | disposition home or self-care (01) ==
LOC: ANHBWCLAB 16:28
PROVIDERS: PCP Nurse Practitioner Adult Health; Visit Provider Nurse Practitioner Adult Health
DX: N92.6 Irregular menstruation, unspecified (principal)
CPT/HCPCS: 36415; 84702